=== PATIENT | female | born 1965 | race Two or more races ===

== ENCOUNTER 2017-08-13 16:02 | Emergency (ER) | payer OTHER ==
[~2017-08-13] VITALS: Ht 152.4 cm; Wt 77.1 kg
[2017-08-13 17:48] LABS: Basophils # (auto) 0.1 uL; Basophils % (auto) 0.3 % (0.0-2.0); Eosinophils # (auto) 0.1 uL; Eosinophils % (auto) 0.3 % (0.0-7.0); Hematocrit 49.5 % (36.0-46.0); Hemoglobin 16.1 g/dL (12.2-16.2); Lymphocytes # (auto) 0.9 uL; Lymphocytes % (auto) 4.8 % (10.0-50.0); Mean Corpuscular Hemoglobin 26.2 pg (28.0-32.0); Mean Corpuscular Hgb Conc. 32.4 g/dL (32.0-36.0); Mean Corpuscular Volume 80.8 fL (80.0-100.0); Monocytes # (auto) 0.9 uL; Neutrophils # (auto) 16.6 uL; Neutrophils % (auto) 89.6 % (37.0-80.0); Nucleated Red Blood Cells % 0.1 %; Platelet Count (auto) 298 10^3/uL (140-450); Red Blood Cells 6.13 10^6/uL (4.0-5.20); Red Cell Distribution Width 14.3 % (11.8-14.3); White Blood Cell 18.5 10^3/uL (4.4-10.8)
[2017-08-13 18:05] LABS: Alanine Aminotransferase 30 U/L (13-56); Alkaline Phosphatase 106 U/L (45-117); Anion Gap 8 (5-15); Aspartate Aminotransferase 23 U/L (15-37); BUN/Creatinine Ratio 14.6; Bilirubin, Total 0.5 mg/dL (0.2-1.0); Blood Urea Nitrogen 12 mg/dL (7-18); Calcium 8.8 mg/dL (8.5-10.1); Carbon Dioxide 25 mmol/L (21-32); Chloride 106 mmol/L (98-107); GFR African American 95 mL/min; GFR Non-African American 78 mL/min; Glucose 92 mg/dL (74-106); Potassium 3.7 mmol/L (3.5-5.1); Sodium 139 mmol/L (136-145); Total Protein 8.9 g/dL (6.4-8.2)
[2017-08-13 18:26] LABS: Amylase 68 U/L (25-115); Lipase 159 U/L (73-393)
[2017-08-13] MEDS ORDERED: ONDANSETRON HCL 4 MG/2 ML VIAL IV ONE (22:45)
[2017-08-13] MEDS ORDERED: SODIUM CHLORIDE 0.9% 1,000 ML IV ONE (23:00)
[2017-08-13] MEDS ORDERED: metroNIDAZOLE 500MG/100ML 100 ML IV ONE (23:45)
[2017-08-13] MEDS ORDERED: LEVOFLOXACIN 500 MG TAB PO ONE (23:45)
[2017-08-14] MEDS ORDERED: metroNIDAZOLE 500 MG TAB PO ONE (00:15)
[2017-08-14 00:23] VITALS: BP 124/70
== END 2017-08-13 23:56 | disposition home or self-care (01) ==
LOC: ER 16:09 → EDBD 16:09 → ER 23:56
DX: K52.9 Noninfective gastroenteritis and colitis, unspecified (principal); K57.90 Diverticulosis of intestine, part unspecified, without perforation or abscess without bleeding; Z90.49 Acquired absence of other specified parts of digestive tract
CPT/HCPCS: 36415; 74176; 80053; 82150; 83690; 84484; 85025; 93005; 96361; 96374; 99285; J2405; J7030